=== PATIENT | female | born 1970 | race Caucasian/White ===

== ENCOUNTER 2017-06-30 09:18 | Emergency (ER) | payer OTHER, BC ==
--- NOTE | 2017-06-30 09:42 | EDM.PDOC ---
ED HPI GENERAL MEDICAL PROBLEM - General Chief Complaint: Flank Pain Stated Complaint: RIGHT LOWER BACK PAIN Time Seen by Provider: 06/30/17 09:42 Source of Information: Reports: Patient - History of Present Illness INITIAL COMMENTS - FREE TEXT/NARRATIVE: HISTORY AND PHYSICAL: History of present illness: [Patient presents with right flank pain radiating around her side laterally, actually begins in the low back more than flank. She rates 8 out of 10 worsened by movement. Better at rest No fever nausea vomiting chills sweats no chest pain shortness breath headache dizziness palpitation no bowel or urine symptoms Denies fall or trauma ] Review of systems: As per history of present illness and below otherwise all systems reviewed and negative. Past medical history: As per history of present illness and as reviewed below otherwise noncontributory. Surgical history: As per history of present illness and as reviewed below otherwise noncontributory. Social history: No reported history of drug or alcohol abuse. Family history: As per history of present illness and as reviewed below otherwise noncontributory. Physical exam: HEENT: Atraumatic, normocephalic, pupils reactive, negative for conjunctival pallor or scleral icterus, mucous membranes moist, throat clear, neck supple, nontender, trachea midline. Lungs: Clear to auscultation, breath sounds equal bilaterally, chest nontender. Heart: S1S2, regular, negative for clicks, rubs, or JVD. Abdomen: Soft, nondistended, nontender. Negative for masses or hepatosplenomegaly. Negative for costovertebral tenderness. Pelvis: Stable nontender. Genitourinary: Deferred. Rectal: Deferred. Extremities: Atraumatic, negative for cords or calf pain. Neurovascular unremarkable. Neuro: Awake, alert, oriented. Cranial nerves II through XII unremarkable. Cerebellum unremarkable. Motor and sensory unremarkable throughout. Exam nonfocal. Musculoskeletal I can reproduce symptoms with palpation of lumbar paraspinous muscle on the right as well as palpation throughout the flank area pain seems to be superficial and muscle spasm in nature no vertebral point tenderness Diagnostics: [ CBC CMP UA CT abdomen pelvis no contrast ] Therapeutics: [Patient has had refused IV fluids as renal stone was consideration with trace blood and low back pain, however this was disproven Toradol 60 IM] Toradol 10 mg by mouth 3 times a day when necessary #15 no refill Norflex 100 mg by mouth twice a day #20 no refill Impression: [ muscle spasm Trace hematuria] on urine dip, normal microscopic exam of urine Chronic history of baseline Definitive disposition and diagnosis as appropriate pending reevaluation and review of above. 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 ED EXAM, GENERAL - Physical Exam Exam: See Below Course - Vital Signs Last Recorded V/S: Last Vital Signs Temp 97.1 F 06/30/17 09:35 Pulse 97 06/30/17 09:35 Resp 18 06/30/17 09:35 BP 122/78 06/30/17 09:35 Pulse Ox 97 06/30/17 09:35 - Orders/Labs/Meds Orders: Active Orders 24 hr Category Date Time Status UA W/MICROSCOPIC [URIN] Stat Lab 06/30/17 09:30 Ordered Labs: Laboratory Tests 06/30/17 06/30/17 06/30/17 Range/Units 09:30 09:45 09:45 WBC 6.81 (4.0-11.0) K/uL RBC 4.81 (4.30-5.90) M/uL Hgb 15.3 (12.0-16.0) g/dL Hct 44.2 (36.0-46.0) % MCV 91.9 (80.0-98.0) fL MCH 31.8 (27.0-32.0) pg MCHC 34.6 (31.0-37.0) g/dL RDW Std Deviation 43.2 (28.0-62.0) fl RDW Coeff of Regino 13 (11.0-15.0) % Plt Count 240 (150-400) K/uL MPV 9.40 (7.40-12.00) fL Neut % (Auto) 67.0 (48.0-80.0) % Lymph % (Auto) 25.0 (16.0-40.0) % [place] % (Auto) 7.8 (0.0-15.0) % Eos % (Auto) 0.1 (0.0-7.0) % Baso % (Auto) 0.1 (0.0-1.5) % Neut # (Auto) 4.6 (1.4-5.7) K/uL Lymph # (Auto) 1.7 (0.6-2.4) K/uL [place] # (Auto) 0.5 (0.0-0.8) K/uL Eos # (Auto) 0.0 (0.0-0.7) K/uL Baso # (Auto) 0.0 (0.0-0.1) K/uL Nucleated RBC % 0.0 /100WBC Nucleated RBCs # 0 K/uL Sodium 139 (136-145) mmol/L Potassium 4.6 (3.5-5.1) mmol/L Chloride 104 (98-107) mmol/L Carbon Dioxide 28.7 (21.0-32.0) mmol/L BUN 13 (7.0-18.0) mg/dL Creatinine 0.8 (0.6-1.0) mg/dL Est Cr Clr Drug Dosing 82.26 mL/min Estimated GFR (MDRD) > 60.0 ml/min Glucose 102 (74-106) mg/dL Calcium 8.9 (8.5-10.1) mg/dL Total Bilirubin 0.3 (0.2-1.0) mg/dL AST 19 (15-37) IU/L ALT 28 (14-63) IU/L Alkaline Phosphatase 72 (46-116) U/L Troponin I < 0.050 (0.000-0.056) ng/mL Total Protein 7.2 (6.4-8.2) g/dL Albumin 3.7 (3.4-5.0) g/dL Globulin 3.5 (2.0-3.5) g/dL Albumin/Globulin Ratio 1.1 L (1.3-2.8) Lipase 127 (73-393) U/L Urine Color YELLOW Urine Appearance CLEAR Urine pH 6.0 (5.0-8.0) Ur Specific [place] 1.025 (1.001-1.035) Urine Protein NEGATIVE (NEGATIVE) mg/dL Urine Glucose (UA) NEGATIVE (NEGATIVE) mg/dL Urine Ketones NEGATIVE (NEGATIVE) mg/dL Urine Occult Blood TRACE-INTACT (NEGATIVE) Urine Nitrite NEGATIVE (NEGATIVE) Urine Bilirubin NEGATIVE (NEGATIVE) Urine Urobilinogen 0.2 (<2.0) EU/dL Ur Leukocyte Esterase NEGATIVE (NEGATIVE) Urine RBC 0-2 (0-2/HPF) Urine WBC 0-1 (0-5/HPF) Ur Epithelial Cells FEW (NONE-FEW) Urine Bacteria RARE (NEGATIVE) Meds: Medications Discontinued Medications Generic Name Dose Route Start Last Admin Trade Name Ritika PRN Reason Stop Dose Admin Sodium Chloride 500 mls @ 999 mls/hr 06/30/17 10:00 Normal Saline IV STAT LUCIO Ketorolac Tromethamine 30 mg 06/30/17 09:50 06/30/17 10:16 Toradol IVPUSH 06/30/17 09:51 Not Given ONETIME ONE Ketorolac Tromethamine 60 mg 06/30/17 10:10 06/30/17 10:15 Toradol IM 06/30/17 10:11 60 mg ONETIME ONE Administration Departure - Departure Time of Disposition: 11:32 Disposition: Home, Self-Care 01 Condition: Good Clinical Impression: Muscle strain - Discharge Information Referrals: Clinton Bojorquez MD [Primary Care Provider] - Forms: ED Department Discharge Additional Instructions: The following information is given to patients seen in the emergency department who are being discharged to home. This information is to outline your options for follow-up care. We provide all patients seen in our emergency department with a follow-up referral. The need for follow-up, as well as the timing and circumstances, are variable depending upon the specifics of your emergency department visit. If you don't have a primary care physician on staff, we will provide you with a referral. We always advise you to contact your personal physician following an emergency department visit to inform them of the circumstance of the visit and for follow-up with them and/or the need for any referrals to a consulting specialist. The emergency department will also refer you to a specialist when appropriate. This referral assures that you have the opportunity for follow-up care with a specialist. All of these measure are taken in an effort to provide you with optimal care, which includes your follow-up. Under all circumstances we always encourage you to contact your private physician who remains a resource for coordinating your care. When calling for follow-up care, please make the office aware that this follow-up is from your recent emergency room visit. If for any reason you are refused follow-up, please contact the [facility] emergency department at and asked to speak to the emergency department charge nurse. - My Orders Last 24 Hours: My Active Orders 06/30/17 09:30 UA W/MICROSCOPIC [URIN] Stat - Assessment/Plan Last 24 Hours: My Active Orders 06/30/17 09:30 UA W/MICROSCOPIC [URIN] Stat
[2017-06-30] MEDS ORDERED: Ketorolac 30 MG/ML SDV IVPUSH ONE (09:50)
[2017-06-30] MEDS ORDERED: Sodium Chloride 0.9% 500 ML IV SCH (10:00)
[2017-06-30] MEDS ORDERED: Ketorolac 60 MG/2 ML SDV IM ONE (10:10)
[2017-06-30 10:11] LABS: CHLORIDE,CL 104 mmol/L (98-107); SODIUM,NA 139 mmol/L (136-145)
--- NOTE | 2017-06-30 11:06 | CT ---
CT of the abdomen and pelvis without contrast. HISTORY: Pain TECHNIQUE: Axial CT images were obtained of the abdomen and pelvis without contrast. Coronal and sagi ttal reconstructions obtained. FINDINGS: The lung bases are clear, no pleural effusion. The liver, spleen, adrenal glands, and pancreas appear unremarkable for noncontrast examination. The gallbladder appears normal. There is no bulky retroperitoneal lymphadenopathy. No abdominal ascites. There are no calcifications noted within the kidneys or along the courses of the ureters bilaterally. The large and small bowel are normal in caliber without evidence of obstruction. The appendix appears normal. There is no bulky pelvic lymphadenopathy. No free fluid. No free air. The urinary bladder ap pears normal. The visualized osseous structures appear normal. IMPRESSION: No acute findings within the abdomen or pelvis.
[2017-06-30 11:50] VITALS: BP 117/81
== END 2017-06-30 11:51 | disposition home or self-care (01) ==
LOC: MW.ED 09:18
DX: S39.011A Strain of muscle, fascia and tendon of abdomen, initial encounter (principal); M62.838 Other muscle spasm; F17.210 Nicotine dependence, cigarettes, uncomplicated; Z88.1 Allergy status to other antibiotic agents; Z79.899 Other long term (current) drug therapy; X58.XXXA Exposure to other specified factors, initial encounter
CPT/HCPCS: 36415; 74176; 80053; 81001; 83690; 84484; 85025; 96372; 99284; J1885; 99283

== ENCOUNTER 2018-08-08 05:18 | Emergency (ER) | payer BC, OTHER ==
--- NOTE | 2018-08-08 05:44 | EDM.PDOC ---
ED HPI GENERAL MEDICAL PROBLEM - General Chief Complaint: Respiratory Problem Stated Complaint: SHORTNESS OF BREATH- NEEDS NEBULIZER TREATMENT Time Seen by Provider: 08/08/18 05:35 - History of Present Illness INITIAL COMMENTS - FREE TEXT/NARRATIVE: HISTORY AND PHYSICAL: History of present illness: The patient is a 47-year-old female with a history of chronic bronchitis and COPD who continues to smoke cigarettes, one pack a day, and follows at [facility] and presents with bronchitis-like cough and feeling short of breath that started yesterday. The patient says that she started feeling tight and she felt wheezy and started having a spastic cough which is typical of her bronchitis flareup and when she went to use her albuterol inhaler she did not have any left. She does have a nebulizer machine but it is packed and she does not know where it is. She tried to wait until her clinic appointment this morning at 10 AM which she does not feel like she can wait that long and needs a breathing treatment. She is also requesting a refill on her inhaler even though she has appointment later today. She has not been on prednisone recently but has used in the past. She has no fevers chills nausea vomiting chest pain or abdominal pain. Review of systems: As per history of present illness and below otherwise all systems reviewed and negative. Past medical history: As per history of present illness and as reviewed below otherwise noncontributory. Surgical history: As per history of present illness and as reviewed below otherwise noncontributory. Social history: No reported history of drug or alcohol abuse. Family history: As per history of present illness and as reviewed below otherwise noncontributory. Physical exam: HEENT: Atraumatic, normocephalic, pupils reactive, negative for conjunctival pallor or scleral icterus, mucous membranes moist, throat clear, neck supple, nontender, trachea midline. Lungs: Clear to auscultation with scattered coarse breath sounds and some diminished breath sounds in the bases but no wheezing or stridor per se, breath sounds equal bilaterally, chest nontender. Patient does have a dry hacking cough on my evaluation Heart: S1S2, regular rate and rhythm no overt murmurs Abdomen: Soft, nondistended, nontender. NABS Pelvis: Deferred. Genitourinary: Deferred. Rectal: Deferred. Extremities: Atraumatic, negative for cords or calf pain. Neurovascular unremarkable. Neuro: Awake, alert, oriented. Cranial nerves II through XII unremarkable. Cerebellum unremarkable. Motor and sensory unremarkable throughout. Exam nonfocal. Diagnostics: [] Therapeutics: DuoNeb spacer and teaching prednisone Impression: Acute on chronic bronchitis Definitive disposition and diagnosis as appropriate pending reevaluation and review of above. - Related Data Allergies Allergy/AdvReac Type Severity Reaction Status Date / Time metronidazole [From Flagyl] Allergy Rash Verified 08/08/18 05:30 Home Meds: Home Meds ARIPiprazole [Abilify] 10 mg PO DAILY 03/30/14 [History] Albuterol [Proair HFA] 1 puff IH Q4H PRN 03/30/14 [History] Sertraline [Zoloft] 100 mg PO DAILY 03/30/14 [History] ALPRAZolam [Xanax] 1 mg PO BEDTIME 08/08/18 [History] Past Medical History HEENT History: Reports: None Cardiovascular History: Reports: None Respiratory History: Reports: Bronchitis, Recurrent, COPD Gastrointestinal History: Reports: None Genitourinary History: Reports: None 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: Musculoskeletal History: Reports: Fracture Other Musculoskeletal History: R wrist Neurological History: Reports: None Psychiatric History: Reports: Bipolar, Depression Endocrine/Metabolic History: Reports: None Hematologic History: Reports: None Immunologic History: Reports: None Oncologic (Cancer) History: Reports: None Dermatologic History: Reports: None - Infectious Disease History Infectious Disease History: Reports: Chicken Pox - Past Surgical History Female Surgical History: Reports: Hysterectomy Social & Family History - Family History Family Medical History: Noncontributory - Tobacco Use Smoking Status *Q: Current Every Day Smoker Years of Tobacco use: 30 Packs/Tins Daily: 1 - Caffeine Use Caffeine Use: Reports: Energy Drinks, Soda - Recreational Drug Use Recreational Drug Use: No ED ROS GENERAL - Review of Systems Review Of Systems: ROS reveals no pertinent complaints other than HPI. ED EXAM, GENERAL - Physical Exam Exam: See Below (See dictation) Course - Vital Signs Last Recorded V/S: Last Vital Signs Temp 36.0 C 08/08/18 05:27 Pulse 81 08/08/18 05:27 Resp 22 H 08/08/18 05:27 BP 135/72 08/08/18 05:27 Pulse Ox 96 08/08/18 05:27 - Orders/Labs/Meds Orders: Active Orders 24 hr Category Date Time Status Communication Order [RC] STAT Care 08/08/18 05:39 Active predniSONE Med 08/08/18 05:40 Once 10 mg PO ONETIME ONE Meds: Medications Discontinued Medications Generic Name Dose Route Start Last Admin Trade Name Ritika PRN Reason Stop Dose Admin Albuterol/Ipratropium 3 ml 08/08/18 05:37 Duoneb 3.0-0.5 Mg/3 Ml NEB 08/08/18 05:38 ONETIME ONE Albuterol/Ipratropium Confirm 08/08/18 05:36 Duoneb 3.0-0.5 Mg/3 Ml Administered 08/08/18 05:37 Dose 3 ml .ROUTE .STK-MED ONE Departure - Departure Time of Disposition: 05:43 Disposition: Home, Self-Care 01 Condition: Good Clinical Impression: Acute exacerbation of chronic bronchitis - Discharge Information Referrals: Clinton Bojorquez MD [Primary Care Provider] - Additional Instructions: The following information is given to patients seen in the emergency department who are being discharged to home. This information is to outline your options for follow-up care. We provide all patients seen in our emergency department with a follow-up referral. The need for follow-up, as well as the timing and circumstances, are variable depending upon the specifics of your emergency department visit. If you don't have a primary care physician on staff, we will provide you with a referral. We always advise you to contact your personal physician following an emergency department visit to inform them of the circumstance of the visit and for follow-up with them and/or the need for any referrals to a consulting specialist. The emergency department will also refer you to a specialist when appropriate. This referral assures that you have the opportunity for followup care with a specialist. All of these measure are taken in an effort to provide you with optimal care, which includes your followup. Under all circumstances we always encourage you to contact your private physician who remains a resource for coordinating your care. When calling for followup care, please make the office aware that this follow-up is from your recent emergency room visit. If for any reason you are refused follow-up, please contact the [facility] emergency department at and ask to speak to the emergency department charge nurse. [address] [place] [address] Push hydration and try to reduce and/or quit smoking. Use your inhaler as directed and start the Medrol Dosepak tomorrow as you have been given a dose of prednisone in the ED today. Please keep your appointment at 10:00 with your provider at [facility] and return to ER as needed as discussed - My Orders Last 24 Hours: My Active Orders 08/08/18 05:39 Communication Order [RC] STAT 08/08/18 05:40 predniSONE 10 mg PO ONETIME ONE - Assessment/Plan Last 24 Hours: My Active Orders 08/08/18 05:39 Communication Order [RC] STAT 08/08/18 05:40 predniSONE 10 mg PO ONETIME ONE
[2018-08-08] MEDS: predniSONE 10 MG Tab PO ONE (05:53)
[2018-08-08] MEDS: Albuterol/Ipratropium 3.0-0.5 MG/3 ML Neb Soln NEB ONE (05:53)
[2018-08-08] MEDS: Albuterol/Ipratropium 3.0-0.5 MG/3 ML Neb Soln ONE (05:53)
[2018-08-08 05:55] VITALS: BP 128/71
== END 2018-08-08 06:02 | disposition home or self-care (01) ==
LOC: MW.ED 05:18
DX: J20.9 Acute bronchitis, unspecified (principal); J42 Unspecified chronic bronchitis; F17.210 Nicotine dependence, cigarettes, uncomplicated; F31.9 Bipolar disorder, unspecified; Z79.899 Other long term (current) drug therapy; Z88.8 Allergy status to other drugs, medicaments and biological substances
CPT/HCPCS: 99283; A9270; 99282; J7620-GY

== ENCOUNTER 2018-08-13 21:41 | Emergency (ER) | payer BC ==
[2018-08-13] MEDS ORDERED: methylPREDNISolone Sodium Succinate 125 MG/2 ML SDV IM ONE (21:46)
[2018-08-13] MEDS ORDERED: Albuterol/Ipratropium 3.0-0.5 MG/3 ML Neb Soln NEB ONE (21:46)
--- NOTE | 2018-08-13 21:50 | EDM.PDOC ---
ED HPI GENERAL MEDICAL PROBLEM - General Chief Complaint: Respiratory Problem Stated Complaint: HARD TIME BREATHING Time Seen by Provider: 08/13/18 21:43 - History of Present Illness INITIAL COMMENTS - FREE TEXT/NARRATIVE: HISTORY AND PHYSICAL: History of present illness: The patient is a 47-year-old female with a history of chronic bronchitis and COPD who does smoke cigarettes one pack a day and Y saw here in emergency department on August 08 and treated her as a COPD exacerbation with an inhaler and steroids. She had an appointment later that morning with her provider at [facility] and told her that he could not prescribed medication for the nebulizer machine and she did not get any. She has been compliant with her inhaler and her Medrol Dosepak and she had told me on the last visit and repeats today that she has a nebulizer machine but it's packed away and she cannot find it. She says she is willing to buy a new one. She says that she just can't take a deep breath but she has no fevers no abdominal pain or vomiting no chest pain and only an occasional dry hacking cough. Cough is not productive of any phlegm and she is eating and drinking normally. Review of systems: As per history of present illness and below otherwise all systems reviewed and negative. Past medical history: As per history of present illness and as reviewed below otherwise noncontributory. Surgical history: As per history of present illness and as reviewed below otherwise noncontributory. Social history: No reported history of drug or alcohol abuse. Family history: As per history of present illness and as reviewed below otherwise noncontributory. Physical exam: General: Well-developed well-nourished mildly overweight female who is speaking clearly without breathlessness. Vital signs are noted by me HEENT: Atraumatic, normocephalic, negative for conjunctival pallor or scleral icterus, mucous membranes moist, throat clear, neck supple, nontender, trachea midline. Lungs: Diminished breath sounds throughout all mckinney and some expiratory wheezing appreciated in the scattered fashion, there are no rales or rhonchi, there is no work of breathing breath sounds equal bilaterally, chest nontender. Heart: S1S2, regular, rate and rhythm no overt murmurs Abdomen: Soft, nondistended, nontender. NABS Pelvis: Deferred Genitourinary: Deferred. Rectal: Deferred. Extremities: Atraumatic, negative for cords or calf pain. Neurovascular unremarkable. No pedal edema Neuro: Awake, alert, oriented. Cranial nerves II through XII unremarkable. Cerebellum unremarkable. Motor and sensory unremarkable throughout. Exam nonfocal. Diagnostics: Chest x-ray Therapeutics: DuoNeb Solu-Medrol Patient is feeling better and she was advised about the left upper lung nodule that was seen in 2013 and is also seen today and the recommendation to get a CAT scan as an outpatient. She states understanding Impression: COPD exacerbation Definitive disposition and diagnosis as appropriate pending reevaluation and review of above no pain Pain Score (Numeric/FACES): 0 - Related Data Allergies Allergy/AdvReac Type Severity Reaction Status Date / Time metronidazole [From Flagyl] Allergy Rash Verified 08/08/18 05:30 Home Meds: Home Meds ARIPiprazole [Abilify] 10 mg PO DAILY 03/30/14 [History] Albuterol [Proair HFA] 1 puff IH Q4H PRN 03/30/14 [History] Sertraline [Zoloft] 100 mg PO DAILY 03/30/14 [History] ALPRAZolam [Xanax] 1 mg PO BEDTIME 08/08/18 [History] Past Medical History HEENT History: Reports: None Cardiovascular History: Reports: None Respiratory History: Reports: Bronchitis, Recurrent, COPD Gastrointestinal History: Reports: None Genitourinary History: Reports: None 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: Musculoskeletal History: Reports: Fracture Other Musculoskeletal History: R wrist Neurological History: Reports: None Psychiatric History: Reports: Bipolar, Depression Endocrine/Metabolic History: Reports: None Hematologic History: Reports: None Immunologic History: Reports: None Oncologic (Cancer) History: Reports: None Dermatologic History: Reports: None - Infectious Disease History Infectious Disease History: Reports: Chicken Pox - Past Surgical History Female Surgical History: Reports: Hysterectomy Social & Family History - Family History Family Medical History: Noncontributory - Tobacco Use Smoking Status *Q: Current Every Day Smoker Years of Tobacco use: 30 Packs/Tins Daily: 1 - Caffeine Use Caffeine Use: Reports: Energy Drinks, Soda - Recreational Drug Use Recreational Drug Use: No ED ROS GENERAL - Review of Systems Review Of Systems: ROS reveals no pertinent complaints other than HPI. ED EXAM, GENERAL - Physical Exam Exam: See Below (see Dictation) Course - Vital Signs Last Recorded V/S: Last Vital Signs Temp 36.6 C 08/13/18 21:41 Pulse 105 H 08/13/18 21:41 Resp 24 H 08/13/18 21:41 BP 130/85 08/13/18 21:41 Pulse Ox 99 08/13/18 21:41 - Orders/Labs/Meds Orders: Active Orders 24 hr Category Date Time Status RT Aerosol Therapy [RC] ASDIRECTED Care 08/13/18 21:46 Active Meds: Medications Discontinued Medications Generic Name Dose Route Start Last Admin Trade Name Ritika PRN Reason Stop Dose Admin Albuterol/Ipratropium 3 ml 08/13/18 21:46 08/13/18 21:50 Duoneb 3.0-0.5 Mg/3 Ml NEB 08/13/18 21:47 3 ml ONETIME ONE Administration Methylprednisolone Sodium Succinate 125 mg 08/13/18 21:46 08/13/18 21:51 Solu-Medrol IM 08/13/18 21:47 125 mg ONETIME ONE Administration Departure - Departure Time of Disposition: 22:56 Disposition: Home, Self-Care 01 Condition: Good Clinical Impression: COPD exacerbation - Discharge Information Referrals: PCP,Unknown [Primary Care Provider] - Forms: ED Department Discharge Additional Instructions: The following information is given to patients seen in the emergency department who are being discharged to home. This information is to outline your options for follow-up care. We provide all patients seen in our emergency department with a follow-up referral. The need for follow-up, as well as the timing and circumstances, are variable depending upon the specifics of your emergency department visit. If you don't have a primary care physician on staff, we will provide you with a referral. We always advise you to contact your personal physician following an emergency department visit to inform them of the circumstance of the visit and for follow-up with them and/or the need for any referrals to a consulting specialist. The emergency department will also refer you to a specialist when appropriate. This referral assures that you have the opportunity for followup care with a specialist. All of these measure are taken in an effort to provide you with optimal care, which includes your followup. Under all circumstances we always encourage you to contact your private physician who remains a resource for coordinating your care. When calling for followup care, please make the office aware that this follow-up is from your recent emergency room visit. If for any reason you are refused follow-up, please contact the [facility] emergency department at and ask to speak to the emergency department charge nurse. [address] [place] [id number] Push hydration and use nebulizer machine and inhaler as we discussed and start the new prednisone doses tomorrow. Please connect with your provider at [facility] to get an outpatient CAT scan of your chest for the left upper lung nodule that we discussed on your chest x-ray. Return to ER as needed and as discussed. Continue to reduce and/or quit smoking - My Orders Last 24 Hours: My Active Orders 08/13/18 21:46 RT Aerosol Therapy [RC] ASDIRECTED - Assessment/Plan Last 24 Hours: My Active Orders 08/13/18 21:46 RT Aerosol Therapy [RC] ASDIRECTED
--- NOTE | 2018-08-13 22:48 | CR ---
INDICATION: Dyspnea. History of COPD. COMPARISON: Chest two views from 03/30/2014 FINDINGS: PA and lateral views of the chest were obtained. There is a 2.1 centimeter diameter rounded mass in the left superior perihilar region. This is present in retrospect on the previous study, superimposed over the anterior end of the left 1st rib. It has increased in size slightly, previously measuring 1.5 centimeters. The masses seen in the anterior upper chest on the lateral view. Recommend CT of the chest with contrast to further characterize this mass. The rest of the chest is clear. The heart remains normal in size. The mediastinum is normal in appearance. The osseous structures are normal in appearance for the patient`s age. IMPRESSION: 2.1 centimeter pulmonary nodule in the anterior left upper lobe, slightly increased in size compared to the previous study. Recommend correlation with CT of the chest with contrast. No sign of any pulmonary infiltrates or congestive failure. Dictated by Jasen Jean Baptiste MD @ Aug 13 2018 10:42PM Signed by Dr. Jasen Jean Baptiste @ Aug 13 2018 10:45PM
[2018-08-13 23:10] VITALS: BP 135/90
== END 2018-08-13 23:10 | disposition home or self-care (01) ==
LOC: MW.ED 21:41
DX: J44.1 Chronic obstructive pulmonary disease with (acute) exacerbation (principal); F17.210 Nicotine dependence, cigarettes, uncomplicated; Z79.899 Other long term (current) drug therapy; Z88.8 Allergy status to other drugs, medicaments and biological substances
CPT/HCPCS: 71046; 94640; 96372; 99285; J2930; J7620-GY

== ENCOUNTER 2018-08-21 03:59 | Emergency (ER) | payer BC ==
[2018-08-21] MEDS ORDERED: Albuterol/Ipratropium 3.0-0.5 MG/3 ML Neb Soln NEB ONE ×2 (04:06→05:01)
--- NOTE | 2018-08-21 05:08 | EDM.PDOC ---
ED HPI GENERAL MEDICAL PROBLEM - General Chief Complaint: Respiratory Problem Stated Complaint: TROUBLE BREATHING Time Seen by Provider: 08/21/18 04:58 - History of Present Illness INITIAL COMMENTS - FREE TEXT/NARRATIVE: HISTORY AND PHYSICAL: History of present illness: Patient 47-year-old white female presents a concern of shortness of breath and wheezing and was seen the other day for same and put on an inhaler and steroids she returns tonight with same patient is a smoker she denies fever chills nausea vomiting. Review of systems: As per history of present illness and below otherwise all systems reviewed and negative. Past medical history: As per history of present illness and as reviewed below otherwise noncontributory. Surgical history: As per history of present illness and as reviewed below otherwise noncontributory. Social history: No reported history of drug or alcohol abuse. Family history: As per history of present illness and as reviewed below otherwise noncontributory. Physical exam: HEENT: Atraumatic, normocephalic, pupils reactive, negative for conjunctival pallor or scleral icterus, mucous membranes moist, throat clear, neck supple, nontender, trachea midline. Lungs: Scattered and expiratory wheezing no crackles no rhonchi, breath sounds equal bilaterally, chest nontender. Heart: S1S2, regular, negative for clicks, rubs, or JVD. Abdomen: Soft, nondistended, nontender. Negative for masses or hepatosplenomegaly. Negative for costovertebral tenderness. Pelvis: Stable nontender. Genitourinary: Deferred. Rectal: Deferred. Extremities: Atraumatic, negative for cords or calf pain. Neurovascular unremarkable. Neuro: Awake, alert, oriented. Cranial nerves II through XII unremarkable. Cerebellum unremarkable. Motor and sensory unremarkable throughout. Exam nonfocal. Diagnostics: None Therapeutics: Albuterol ipratropium nebulizer Impression: #1 reactive airway disease #2 medical noncompliance Definitive disposition and diagnosis as appropriate pending reevaluation and review of above. - Related Data Allergies Allergy/AdvReac Type Severity Reaction Status Date / Time metronidazole [From Flagyl] Allergy Rash Verified 08/21/18 04:06 Home Meds: Home Meds ARIPiprazole [Abilify] 10 mg PO DAILY 03/30/14 [History] Albuterol [Proair HFA] 1 puff IH Q4H PRN 03/30/14 [History] Sertraline [Zoloft] 100 mg PO DAILY 03/30/14 [History] ALPRAZolam [Xanax] 1 mg PO BEDTIME 08/08/18 [History] Past Medical History HEENT History: Reports: None Cardiovascular History: Reports: None Respiratory History: Reports: Bronchitis, Recurrent, COPD Gastrointestinal History: Reports: None Genitourinary History: Reports: None [employer]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 History: Reports: Fracture Other Musculoskeletal History: R wrist Neurological History: Reports: None Psychiatric History: Reports: Bipolar, Depression Endocrine/Metabolic History: Reports: None Hematologic History: Reports: None Immunologic History: Reports: None Oncologic (Cancer) History: Reports: None Dermatologic History: Reports: None - Infectious Disease History Infectious Disease History: Reports: Chicken Pox - Past Surgical History Female Surgical History: Reports: Hysterectomy Social & Family History - Family History Family Medical History: Noncontributory - Tobacco Use Smoking Status *Q: Current Every Day Smoker Years of Tobacco use: 30 Packs/Tins Daily: 1 - Caffeine Use Caffeine Use: Reports: Energy Drinks, Soda - Recreational Drug Use Recreational Drug Use: No ED ROS GENERAL - Review of Systems Review Of Systems: ROS reveals no pertinent complaints other than HPI. ED EXAM, GENERAL - Physical Exam Exam: See Below (See dictation) Course - Vital Signs Last Recorded V/S: Last Vital Signs Temp 36.1 C 08/21/18 04:00 Pulse 92 08/21/18 04:00 Resp 20 08/21/18 04:00 BP 150/77 H 08/21/18 04:00 Pulse Ox 98 08/21/18 04:00 - Orders/Labs/Meds Orders: Active Orders 24 hr Category Date Time Status RT Aerosol Therapy [RC] ASDIRECTED Care 08/21/18 04:06 Active RT Aerosol Therapy [RC] ASDIRECTED Care 08/21/18 05:01 Active Meds: Medications Discontinued Medications Generic Name Dose Route Start Last Admin Trade Name Ritika PRN Reason Stop Dose Admin Albuterol/Ipratropium 3 ml 08/21/18 04:06 08/21/18 04:12 Duoneb 3.0-0.5 Mg/3 Ml NEB 08/21/18 04:07 3 ml ONETIME ONE Administration Albuterol/Ipratropium 3 ml 08/21/18 05:01 Duoneb 3.0-0.5 Mg/3 Ml NEB 08/21/18 05:02 ONETIME ONE Departure - Departure Time of Disposition: 05:06 Disposition: Home, Self-Care 01 Condition: Good Clinical Impression: Exacerbation of asthma, Medical non-compliance - Discharge Information Referrals: PCP,None [Primary Care Provider] - Additional Instructions: The following information is given to patients seen in the emergency department who are being discharged to home. This information is to outline your options for follow-up care. We provide all patients seen in our emergency department with a follow-up referral. The need for follow-up, as well as the timing and circumstances, are variable depending upon the specifics of your emergency department visit. If you don't have a primary care physician on staff, we will provide you with a referral. We always advise you to contact your personal physician following an emergency department visit to inform them of the circumstance of the visit and for follow-up with them and/or the need for any referrals to a consulting specialist. The emergency department will also refer you to a specialist when appropriate. This referral assures that you have the opportunity for followup care with a specialist. All of these measure are taken in an effort to provide you with optimal care, which includes your followup. Under all circumstances we always encourage you to contact your private physician who remains a resource for coordinating your care. When calling for followup care, please make the office aware that this follow-up is from your recent emergency room visit. If for any reason you are refused follow-up, please contact the [facility] emergency department at and asked to speak to the emergency department charge nurse. Medrol Dosepak albuterol as directed stop smoking follow-up primary medical doctor return as needed as discussed - My Orders Last 24 Hours: My Active Orders 08/21/18 04:06 RT Aerosol Therapy [RC] ASDIRECTED 08/21/18 05:01 RT Aerosol Therapy [RC] ASDIRECTED - Assessment/Plan Last 24 Hours: My Active Orders 08/21/18 04:06 RT Aerosol Therapy [RC] ASDIRECTED 08/21/18 05:01 RT Aerosol Therapy [RC] ASDIRECTED
[2018-08-21 05:27] VITALS: BP 140/80
== END 2018-08-21 05:20 | disposition home or self-care (01) ==
LOC: MW.ED 03:59
DX: J45.901 Unspecified asthma with (acute) exacerbation (principal); Z91.14 Patient's other noncompliance with medication regimen; F17.210 Nicotine dependence, cigarettes, uncomplicated; J44.9 Chronic obstructive pulmonary disease, unspecified; F31.9 Bipolar disorder, unspecified; Z79.899 Other long term (current) drug therapy
CPT/HCPCS: 99284-25; J7620-GY

== ENCOUNTER 2018-10-13 17:00 | Emergency (ER) | payer BC ==
--- NOTE | 2018-10-13 17:07 | EDM.PDOC ---
ED HPI GENERAL MEDICAL PROBLEM - General Chief Complaint: Respiratory Problem Stated Complaint: TROUBLE BREATHING Time Seen by Provider: 10/13/18 17:02 Source of Information: Reports: Patient History Limitations: Reports: No Limitations - History of Present Illness INITIAL COMMENTS - FREE TEXT/NARRATIVE: History of present illness: []Patient had a lung nodule biopsy at [facility] 5 days ago and states she cannot take a deep breath. She was told she had a small pneumothorax resolved on its own. She denies any fevers, chills and has been coughing. Patient has used an albuterol nebulizer and inhalers without relief. He had a few tablets of hydrocodone for the procedure but has finished those she has not been taking any other pain meds. Review of systems: As per history of present illness and below otherwise all systems reviewed and negative. Past medical history: As per history of present illness and as reviewed below otherwise noncontributory. Surgical history: As per history of present illness and as reviewed below otherwise noncontributory. Social history: No reported history of drug or alcohol abuse. Family history: As per history of present illness and as reviewed below otherwise noncontributory. Physical exam: General: Well developed, well nourished in NAD HEENT: Atraumatic, normocephalic, pupils reactive, negative for conjunctival pallor or scleral icterus, mucous membranes moist, throat clear, neck supple, nontender, trachea midline. Lungs: Clear to auscultation, breath sounds equal bilaterally, chest nontender. Heart: S1S2, regular, negative for clicks, rubs, or JVD. Abdomen: NABS, Soft, nondistended, nontender. Negative for masses or hepatosplenomegaly. Negative for costovertebral tenderness. Pelvis: Stable nontender. Genitourinary: Deferred. Rectal: Deferred. Extremities: Atraumatic, negative for cords or calf pain. Neurovascular unremarkable. Neuro: Awake, alert, oriented. Cranial nerves II through XII unremarkable. Cerebellum unremarkable. Motor and sensory unremarkable throughout. Exam nonfocal. Skin:warm and dry Diagnostics: Chest x-ray Therapeutics: Toradol ED Course: Stable Impression: Chest pain status post lung biopsy Prescriptions: Tramadol Plan: Take meds as directed, follow up with your primary care physician, return to ER if symptoms worsen or change. Definitive disposition and diagnosis as appropriate pending reevaluation and review of above. Left Chest Pain Score (Numeric/FACES): 5 - Related Data Allergies Allergy/AdvReac Type Severity Reaction Status Date / Time metronidazole [From Flagyl] Allergy Rash Verified 10/13/18 17:13 Home Meds: Home Meds ARIPiprazole [Abilify] 10 mg PO DAILY 03/30/14 [History] Albuterol [Proair HFA] 1 puff IH Q4H PRN 03/30/14 [History] Sertraline [Zoloft] 100 mg PO DAILY 03/30/14 [History] ALPRAZolam [Xanax] 1 mg PO BEDTIME 08/08/18 [History] Albuterol/Ipratropium [DuoNeb 3.0-0.5 MG/3 ML] 3 ml INH Q4H PRN 10/13/18 [ History] Umeclidinium Anson [Incruse Ellipta*] 2 puff INH DAILY 10/13/18 [History] traMADol HCl [Tramadol HCl] 50 mg PO Q6H PRN #16 tablet 10/13/18 [Rx] Past Medical History HEENT History: Reports: None Cardiovascular History: Reports: None Respiratory History: Reports: Bronchitis, Recurrent, COPD Gastrointestinal History: Reports: None Genitourinary History: Reports: 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: Reports: 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 Other Musculoskeletal History: R wrist Neurological History: Reports: None Psychiatric History: Reports: Bipolar, Depression Endocrine/Metabolic History: Reports: None Hematologic History: Reports: None Immunologic History: Reports: None Oncologic (Cancer) History: Reports: None Dermatologic History: Reports: None - Infectious Disease History Infectious Disease History: Reports: Chicken Pox - Past Surgical History Female Surgical History: Reports: Hysterectomy Social & Family History - Family History Family Medical History: Noncontributory - Caffeine Use Caffeine Use: Reports: Energy Drinks, Soda ED ROS GENERAL - Review of Systems Review Of Systems: See Below ED EXAM, GENERAL - Physical Exam Exam: See Below Course - Vital Signs Last Recorded V/S: Last Vital Signs Temp 97.7 F 10/13/18 17:09 Pulse 95 10/13/18 17:09 Resp 22 H 10/13/18 17:09 BP 137/79 10/13/18 17:09 Pulse Ox 98 10/13/18 17:09 - Orders/Labs/Meds Orders: Active Orders 24 hr Category Date Time Status Chest 1V Frontal [CR] Stat Exams 10/13/18 17:04 Taken Meds: Medications Discontinued Medications Generic Name Dose Route Start Last Admin Trade Name Freq PRN Reason Stop Dose Admin Ketorolac Tromethamine 60 mg 10/13/18 17:17 10/13/18 17:23 Toradol IM 10/13/18 17:18 60 mg ONETIME ONE Administration Departure - Departure Time of Disposition: 18:02 Disposition: Home, Self-Care 01 Condition: Good Clinical Impression: Chest pain Qualifiers: Chest pain type: other chest pain Qualified Code(s): R07.89 - Other chest pain - Discharge Information *PRESCRIPTION DRUG MONITORING PROGRAM REVIEWED*: No *COPY OF PRESCRIPTION DRUG MONITORING REPORT IN PATIENT MARIFER: No Prescriptions: traMADol HCl [Tramadol HCl] 50 mg PO Q6H PRN #16 tablet PRN Reason: Pain Referrals: Clinton Bojorquez MD [Primary Care Provider] - Forms: ED Department Discharge Additional Instructions: The following information is given to patients seen in the emergency department who are being discharged to home. This information is to outline your options for follow-up care. We provide all patients seen in our emergency department with a follow-up referral. The need for follow-up, as well as the timing and circumstances, are variable depending upon the specifics of your emergency department visit. If you don't have a primary care physician on staff, we will provide you with a referral. We always advise you to contact your personal physician following an emergency department visit to inform them of the circumstance of the visit and for follow-up with them and/or the need for any referrals to a consulting specialist. The emergency department will also refer you to a specialist when appropriate. This referral assures that you have the opportunity for follow-up care with a specialist. All of these measure are taken in an effort to provide you with optimal care, which includes your follow-up. Under all circumstances we always encourage you to contact your private physician who remains a resource for coordinating your care. When calling for follow-up care, please make the office aware that this follow-up is from your recent emergency room visit. If for any reason you are refused follow-up, please contact the [facility] Emergency Department at and asked to speak to the emergency department charge nurse. Take meds as directed, follow up with your primary care physician, return to ER if symptoms worsen or change. [facility] [address] [place] [id number] - My Orders Last 24 Hours: My Active Orders 10/13/18 17:04 Chest 1V Frontal [CR] Stat - Assessment/Plan Last 24 Hours: My Active Orders 10/13/18 17:04 Chest 1V Frontal [CR] Stat
[2018-10-13 17:13] VITALS: BP 137/79
[2018-10-13] MEDS ORDERED: Ketorolac 60 MG/2 ML SDV IM ONE (17:17)
--- NOTE | 2018-10-13 18:02 | CR ---
INDICATION: Chest pain and dyspnea TECHNIQUE: Chest 1 views COMPARISON: August 13, 2018 FINDINGS: Cardiovascular and mediastinum: Heart size and vasculature are normal in caliber and appearance. Lungs and pleural spaces: Stable 2 cm left upper lobe nodule. Remainder of the lungs and pleural spaces are clear. No pneumothorax. Bones and soft tissues: No significant findings. IMPRESSION: No acute or specific finding to explain chest pain or dyspnea. Stable left upper lobe nodule. Dictated by Allan Zaragoza MD @ Oct 13 2018 5:57PM Signed by Dr. Allan Zaragoza @ Oct 13 2018 6:01PM
== END 2018-10-13 18:09 | disposition home or self-care (01) ==
LOC: MW.ED 17:00
DX: R07.89 Other chest pain (principal); F31.9 Bipolar disorder, unspecified; Z88.8 Allergy status to other drugs, medicaments and biological substances; Z98.890 Other specified postprocedural states; Z79.899 Other long term (current) drug therapy
CPT/HCPCS: 71045; 96372; 99283; J1885

== ENCOUNTER 2018-11-25 11:09 | Emergency (ER) | payer BC ==
[2018-11-25] MEDS ORDERED: methylPREDNISolone Sodium Succinate 125 MG/2 ML SDV IVPUSH ONE (11:19)
[2018-11-25] MEDS ORDERED: Albuterol/Ipratropium 3.0-0.5 MG/3 ML Neb Soln NEB ONE (11:19)
[2018-11-25] MEDS ORDERED: Aspirin 81 MG Tab.Chew PO ONE (11:49)
--- NOTE | 2018-11-25 11:50 | EDM.PDOC ---
ED HPI GENERAL MEDICAL PROBLEM - General Chief Complaint: Chest Pain Stated Complaint: TIGHTNESS IN CHEST Time Seen by Provider: 11/25/18 11:11 Source of Information: Reports: Patient History Limitations: Reports: No Limitations - History of Present Illness INITIAL COMMENTS - FREE TEXT/NARRATIVE: HISTORY AND PHYSICAL: History of present illness: Patient is a 48-year-old female presents to the ED today with concern of chest tightness and cough 2 days. Patient states she has had pneumonia in the past and that her symptoms today feel similar to when she had pneumonia. Patient states she feels like she can't take a big deep breath and has had a dry cough. Patient states she does have a history of a lung nodule in which she has had biopsied and came back benign. Patient states she does have a history of smoking as well as sleeping and has so for 30 years. Patient states her child stopped tightness is worse if she takes a deep breath. Patient denies any other health history or any other symptoms or concerns at this time. Patient denies fever, chills, shortness of breath. Denies headache, neck stiff ness, change in vision, syncope, or near syncope. Denies nausea, vomiting, abdominal pain, diarrhea, constipation, or dysuria. Has not noted any blood in urine or stool. Patient has been eating and drinking appropriately. Review of systems: As per history of present illness and below otherwise all systems reviewed and negative. Past medical history: As per history of present illness and as reviewed below otherwise noncontributory. Surgical history: As per history of present illness and as reviewed below otherwise noncontributory. Social history: See social history for further information Family history: As per history of present illness and as reviewed below otherwise noncontributory. Physical exam: General: Patient is alert, oriented, and in no acute distress. Patient laying comfortably on exam table. HEENT: Atraumatic, normocephalic, pupils equal and reactive bilaterally, negative for conjunctival pallor or scleral icterus, mucous membranes moist, TMs normal bilaterally, throat clear, neck supple, nontender, trachea midline. No drooling or trismus noted. No meningeal signs. No hot potato voice noted. Lungs: Diffuse wheezing to auscultation of bilateral lung bases, breath sounds equal bilaterally, chest nontender. Heart: S1S2, regular rate and rhythm without overt murmur Abdomen: Soft, nondistended, nontender. Negative for masses or hepatosplenomegaly. Negative for costovertebral tenderness. Pelvis: Stable nontender. Genitourinary: Deferred. Rectal: Deferred. Skin: Intact, warm, dry. No lesions or rashes noted. Extremities: Atraumatic, negative for cords or calf pain. Neurovascular unremarkable. Neuro: Awake, alert, oriented. Cranial nerves II through XII unremarkable. Cerebellum unremarkable. Motor and sensory unremarkable throughout. Exam nonfocal. Notes: Admission for observation was offered to patient but she declines at this time. Discussed all risks versus benefits with patient and she expresses understanding. Discussed the importance for follow-up with primary care provider Voices understanding and is agreeable to plan of care. Denies any further questions or concerns at this time. Diagnostics: CBC, CMP, UA, EKG, troponin, chest x-ray, PT/INR, lipase Therapeutics: DuoNeb, Solu-Medrol, aspirin Prescription: Medrol dose pack, Jolie Carbone (patient states she had an albuterol inhaler available to her) Impression: Chest pain, unspecified Cough Chronic smoking history Plan: 1. Take medication as prescribed. You can alternate ibuprofen and Tylenol as directed for pain and discomfort. 2. Follow-up with the primary care provider as discussed. Return to the ED as needed and as discussed. Definitive disposition and diagnosis as appropriate pending reevaluation and review of above. Chest Wall Pain Score (Numeric/FACES): 5 - Related Data Allergies Allergy/AdvReac Type Severity Reaction Status Date / Time metronidazole [From Flagyl] Allergy Rash Verified 11/25/18 11:14 Home Meds: Home Meds ARIPiprazole [Abilify] 10 mg PO DAILY 03/30/14 [History] Albuterol [Proair HFA] 1 puff IH Q4H PRN 03/30/14 [History] Sertraline [Zoloft] 100 mg PO DAILY 03/30/14 [History] ALPRAZolam [Xanax] 1 mg PO BEDTIME 08/08/18 [History] Albuterol/Ipratropium [DuoNeb 3.0-0.5 MG/3 ML] 3 ml INH Q4H PRN 10/13/18 [ History] Umeclidinium [place] [Incruse Ellipta*] 2 puff INH DAILY 10/13/18 [History] traMADol HCl [Tramadol HCl] 50 mg PO Q6H PRN #16 tablet 10/13/18 [Rx] Past Medical History HEENT History: Reports: None Cardiovascular History: Reports: None Respiratory History: Reports: Bronchitis, Recurrent, COPD Gastrointestinal History: Reports: None Genitourinary History: Reports: None CAREER SPECIALIST History: Reports: Musculoskeletal History: Reports: Fracture Other Musculoskeletal History: R wrist Neurological History: Reports: None Psychiatric History: Reports: Bipolar, Depression Endocrine/Metabolic History: Reports: None Hematologic History: Reports: None Immunologic History: Reports: None Oncologic (Cancer) History: Reports: None Dermatologic History: Reports: None - Infectious Disease History Infectious Disease History: Reports: Chicken Pox - Past Surgical History Female Surgical History: Reports: Hysterectomy Social & Family History - Family History Family Medical History: Noncontributory - Tobacco Use Smoking Status *Q: Former Smoker Used Tobacco, but Quit: Yes Month/Year Tobacco Last Used: November 2018 - Caffeine Use Caffeine Use: Reports: Soda - Recreational Drug Use Recreational Drug Use: No ED ROS GENERAL - Review of Systems Review Of Systems: ROS reveals no pertinent complaints other than HPI. ED EXAM, GENERAL - Physical Exam Exam: See Below (See dictation) Course - Vital Signs Last Recorded V/S: Last Vital Signs Temp 36.2 C 11/25/18 11:14 Pulse 84 11/25/18 12:08 Resp 18 11/25/18 12:08 BP 150/73 H 11/25/18 12:08 Pulse Ox 98 11/25/18 12:08 - Orders/Labs/Meds Orders: Active Orders 24 hr Category Date Time Status EKG Documentation Completion [RC] STAT Care 11/25/18 11:11 Active RT Aerosol Therapy [RC] ASDIRECTED Care 11/25/18 11:19 Active Labs: Laboratory Tests 11/25/18 11/25/18 11/25/18 Range/Units 11:24 11:24 11:24 WBC 8.34 (4.0-11.0) K/uL RBC 4.66 (4.30-5.90) M/uL Hgb 14.0 (12.0-16.0) g/dL Hct 43.0 (36.0-46.0) % MCV 92.3 (80.0-98.0) fL MCH 30.0 (27.0-32.0) pg MCHC 32.6 (31.0-37.0) g/dL RDW Std Deviation 42.2 (28.0-62.0) fl RDW Coeff of Regino 13 (11.0-15.0) % Plt Count 260 (150-400) K/uL MPV 9.30 (7.40-12.00) fL Neut % (Auto) 72.1 (48.0-80.0) % Lymph % (Auto) 23.3 (16.0-40.0) % [place] % (Auto) 4.2 (0.0-15.0) % Eos % (Auto) 0.4 (0.0-7.0) % Baso % (Auto) 0.0 (0.0-1.5) % Neut # (Auto) 6.0 H (1.4-5.7) K/uL Lymph # (Auto) 1.9 (0.6-2.4) K/uL [place] # (Auto) 0.4 (0.0-0.8) K/uL Eos # (Auto) 0.0 (0.0-0.7) K/uL Baso # (Auto) 0.0 (0.0-0.1) K/uL Nucleated RBC % 0.0 /100WBC Nucleated RBCs # 0 K/uL INR 0.91 Sodium 139 (136-145) mmol/L Potassium 4.2 (3.5-5.1) mmol/L Chloride 102 (98-107) mmol/L Carbon Dioxide 27.8 (21.0-32.0) mmol/L BUN 12 (7.0-18.0) mg/dL Creatinine 0.9 (0.6-1.0) mg/dL Est Cr Clr Drug Dosing 71.56 mL/min Estimated GFR (MDRD) > 60.0 ml/min Glucose 143 H (74-106) mg/dL Calcium 9.2 (8.5-10.1) mg/dL Total Bilirubin 0.3 (0.2-1.0) mg/dL AST 19 (15-37) IU/L ALT 35 (14-63) IU/L Alkaline Phosphatase 89 (46-116) U/L Troponin I < 0.050 (0.000-0.056) ng/mL Total Protein 7.0 (6.4-8.2) g/dL Albumin 3.4 (3.4-5.0) g/dL Globulin 3.6 (2.6-4.0) g/dL Albumin/Globulin Ratio 0.9 (0.9-1.6) Lipase 124 (73-393) U/L Urine Color Urine Appearance Urine pH (5.0-8.0) Ur Specific [place] (1.001-1.035) Urine Protein (NEGATIVE) mg/dL Urine Glucose (UA) (NEGATIVE) mg/dL Urine Ketones (NEGATIVE) mg/dL Urine Occult Blood (NEGATIVE) Urine Nitrite (NEGATIVE) Urine Bilirubin (NEGATIVE) Urine Urobilinogen (<2.0) EU/dL Ur Leukocyte Esterase (NEGATIVE) 11/25/18 Range/Units 11:45 WBC (4.0-11.0) K/uL RBC (4.30-5.90) M/uL Hgb (12.0-16.0) g/dL Hct (36.0-46.0) % MCV (80.0-98.0) fL MCH (27.0-32.0) pg MCHC (31.0-37.0) g/dL RDW Std Deviation (28.0-62.0) fl RDW Coeff of Regino (11.0-15.0) % Plt Count (150-400) K/uL MPV (7.40-12.00) fL Neut % (Auto) (48.0-80.0) % Lymph % (Auto) (16.0-40.0) % [place] % (Auto) (0.0-15.0) % Eos % (Auto) (0.0-7.0) % Baso % (Auto) (0.0-1.5) % Neut # (Auto) (1.4-5.7) K/uL Lymph # (Auto) (0.6-2.4) K/uL [place] # (Auto) (0.0-0.8) K/uL Eos # (Auto) (0.0-0.7) K/uL Baso # (Auto) (0.0-0.1) K/uL Nucleated RBC % /100WBC Nucleated RBCs # K/uL INR Sodium (136-145) mmol/L Potassium (3.5-5.1) mmol/L Chloride (98-107) mmol/L Carbon Dioxide (21.0-32.0) mmol/L BUN (7.0-18.0) mg/dL Creatinine (0.6-1.0) mg/dL Est Cr Clr Drug Dosing mL/min Estimated GFR (MDRD) ml/min Glucose (74-106) mg/dL Calcium (8.5-10.1) mg/dL Total Bilirubin (0.2-1.0) mg/dL AST (15-37) IU/L ALT (14-63) IU/L Alkaline Phosphatase (46-116) U/L Troponin I (0.000-0.056) ng/mL Total Protein (6.4-8.2) g/dL Albumin (3.4-5.0) g/dL Globulin (2.6-4.0) g/dL Albumin/Globulin Ratio (0.9-1.6) Lipase (73-393) U/L Urine Color YELLOW Urine Appearance CLEAR Urine pH 6.0 (5.0-8.0) Ur Specific [place] 1.010 (1.001-1.035) Urine Protein NEGATIVE (NEGATIVE) mg/dL Urine Glucose (UA) NEGATIVE (NEGATIVE) mg/dL Urine Ketones NEGATIVE (NEGATIVE) mg/dL Urine Occult Blood NEGATIVE (NEGATIVE) Urine Nitrite NEGATIVE (NEGATIVE) Urine Bilirubin NEGATIVE (NEGATIVE) Urine Urobilinogen 0.2 (<2.0) EU/dL Ur Leukocyte Esterase NEGATIVE (NEGATIVE) Meds: Medications Discontinued Medications Generic Name Dose Route Start Last Admin Trade Name Ritika PRN Reason Stop Dose Admin Albuterol/Ipratropium 3 ml 11/25/18 11:19 11/25/18 11:24 Duoneb 3.0-0.5 Mg/3 Ml NEB 11/25/18 11:20 3 ml ONETIME ONE Administration Aspirin 324 mg 11/25/18 11:49 11/25/18 12:01 Aspirin PO 11/25/18 11:50 324 mg ONETIME ONE Administration Methylprednisolone Sodium Succinate 125 mg 11/25/18 11:19 11/25/18 11:24 Solu-Medrol IVPUSH 11/25/18 11:20 125 mg ONETIME ONE Administration Departure - Departure Time of Disposition: 12:11 Disposition: Home, Self-Care 01 Clinical Impression: Cough, History of smoking Chest pain Qualifiers: Chest pain type: other chest pain Qualified Code(s): R07.89 - Other chest pain - Discharge Information Referrals: PCP,Unknown [Primary Care Provider] - Forms: ED Department Discharge Additional Instructions: The following information is given to patients seen in the emergency department who are being discharged to home. This information is to outline your options for follow-up care. We provide all patients seen in our emergency department with a follow-up referral. The need for follow-up, as well as the timing and circumstances, are variable depending upon the specifics of your emergency department visit. If you don't have a primary care physician on staff, we will provide you with a referral. We always advise you to contact your personal physician following an emergency department visit to inform them of the circumstance of the visit and for follow-up with them and/or the need for any referrals to a consulting specialist. The emergency department will also refer you to a specialist when appropriate. This referral assures that you have the opportunity for follow-up care with a specialist. All of these measure are taken in an effort to provide you with optimal care, which includes your follow-up. Under all circumstances we always encourage you to contact your private physician who remains a resource for coordinating your care. When calling for follow-up care, please make the office aware that this follow-up is from your recent emergency room visit. If for any reason you are refused follow-up, please contact the [facility] Emergency Department at and asked to speak to the emergency department charge nurse. [facility] [address] [place] [address] [id number] [address] [id number] 1. Take medication as prescribed. You can alternate ibuprofen and Tylenol as directed for pain and discomfort. 2. Follow-up with the primary care provider as discussed. Return to the ED as needed and as discussed. - My Orders Last 24 Hours: My Active Orders 08/25/19 11:11 EKG Documentation Completion [RC] STAT 11/25/18 11:19 RT Aerosol Therapy [RC] ASDIRECTED - Assessment/Plan Last 24 Hours: My Active Orders 11/25/18 11:11 EKG Documentation Completion [RC] STAT 11/25/18 11:19 RT Aerosol Therapy [RC] ASDIRECTED
--- NOTE | 2018-11-25 11:58 | CR ---
Indication: Shortness of breath. Technique: PA and lateral views the chest were obtained. Comparison: Chest x-ray dated October 13, 2018. CT scan dated 08/31/2018. Findings: The heart is normal in size. No masses identified in the left upper lobe. This is stable. No infiltrate, pleural effusion, or pneumothorax is identified. Impression: Stable chest x-ray however, there is a mass in the left upper lobe. A CT scan from 08/31/2018 demonstrated this to not be a calcified granuloma. Please see report of that study dated 08/31/2018 Dictated by Lidya May MD @ Nov 25 2018 11:54AM Signed by Dr. Lidya May @ Nov 25 2018 11:56AM
[2018-11-25 12:01] LABS: CHLORIDE,CL 102 mmol/L (98-107); SODIUM,NA 139 mmol/L (136-145)
[2018-11-25 12:08] VITALS: BP 150/73
== END 2018-11-25 12:22 | disposition home or self-care (01) ==
LOC: MW.ED 11:09
DX: R07.89 Other chest pain (principal); R05 Cough; J44.9 Chronic obstructive pulmonary disease, unspecified; F31.9 Bipolar disorder, unspecified; Z88.1 Allergy status to other antibiotic agents; Z79.899 Other long term (current) drug therapy; Z87.891 Personal history of nicotine dependence
CPT/HCPCS: 36415; 71046; 80053; 81003; 83690; 84484; 85025; 85610; 93005; 96374; 99285; A9270; J2930; 99284; J7620-GY